=== PATIENT | male | born 1975 | race Caucasian/White ===

== ENCOUNTER 2016-11-13 08:02 | Emergency (ER) | payer BC ==
[~2016-11-13] VITALS: Ht 185.4 cm; Wt 104.3 kg
[2016-11-13 08:02] VITALS: BP 159/88; PULSE 74; RESP 16; TEMP 96.7; O2SAT 98
[~2016-11-13 08:02] MED LIST: AMLO5TAB92 PO; ECO325 PO; LISI-600 PO; SOTA80TA PO
--- NOTE | 2016-11-13 08:02 | NUR ---
Patient ambulated with ease to bed 3 to gown for evaluation.
--- NOTE | 2016-11-13 08:05 | NUR ---
ER Dr. Kenney at bedside examining patient.
--- NOTE | 2016-11-13 08:06 | NUR ---
Pt presents to Ed c/o L chest wall. Pt denies SOB, no acute distress noted. Pt h/o Afib ,HTN, GERD. EKG done .# 20 gauge angiocath placed to LAC. Use of asceptic technique. Opsite placed over site. Blood return noted. Blood for lab drawn from site. Flushed with 10 cc of normal saline. No evidence of infiltration noted. Patient tolerated well.
[2016-11-13] MEDS ORDERED: MAG HYDROX/AL HYDROX/SIMETH 30 ML, BELLADONNA ALKALOIDS/PHENOBARB 10 ML, LIDOCAINE VISC... PO ONE ×3 (08:15)
[2016-11-13] MEDS ORDERED: KETOROLAC TROMETHAMINE 60 MG/2 ML VIAL IM ONE (08:15)
[2016-11-13 08:33] LABS: BASOPHILS % (AUTO) 0.7 % (0.0-2.0); EOSINOPHILS # (AUTO) 0.1 K/uL (0.0-0.4); EOSINOPHILS % (AUTO) 1.1 % (0.0-4.0); HEMATOCRIT 46.5 % (36-54); HEMOGLOBIN 15.7 g/dL (14.0-18.0); LYMPHOCYTES # (AUTO) 1.5 K/uL (1.0-5.5); LYMPHOCYTES % (AUTO) 27.7 % (20.5-51.5); MEAN CORPUSCULAR HEMOGLOBIN 30 pg (27-31); MEAN CORPUSCULAR HGB CONC 34 % (32-36); MEAN CORPUSCULAR VOLUME 89 fL (79.0-98.0); MONOCYTES # (AUTO) 0.5 K/uL (0.0-1.0); MONOCYTES % (AUTO) 8.9 % (1.7-9.3); NEUTROPHILS # (AUTO) 3.2 K/uL (1.8-7.7); NEUTROPHILS % (AUTO) 61.6 % (40.0-70.0); PLATELET COUNT (AUTO) 210 K/uL (130-430); RED BLOOD CELL COUNT(AUTO) 5.21 MIL/uL (4.2-6.2); RED CELL DISTRIBUTION WIDTH 12.7 % (9.0-15.0); WHITE BLOOD COUNT (AUTO) 5.3 K/uL (4.8-10.8)
--- NOTE | 2016-11-13 08:40 | NUR ---
Pt tolerated medication well. Will continue to monitor.
[2016-11-13 08:52] LABS: CALCIUM 9.3 mg/dL (8.4-11.0); CREATININE 1.15 mg/dL (0.55-1.30); POTASSIUM 4.3 mmol/L (3.5-5.1)
[2016-11-13 08:57] LABS: ALBUMIN 4.4 g/dL (3.4-4.8); TOTAL BILIRUBIN 1.5 mg/dL (0.0-1.0)
[2016-11-13 09:35] VITALS: BP 155/88; PULSE 76; RESP 16; TEMP 96.7; O2SAT 98
--- NOTE | 2016-11-13 09:35 | NUR ---
Patient given written and verbal discharge instructions and verbalizes understanding. ER MD discussed with patient the results and treatment provided. Patient in stable condition. ID arm band removed. IV catheter removed intact and dressing applied, no active bleeding. Patient educated on pain management and to follow up with PMD. Pain Scale 0 Opportunity for questions provided and answered.
== END 2016-11-13 09:35 | disposition home or self-care (01) ==
LOC: SED 08:02
DX: R07.89 Other chest pain (principal); I10 Essential (primary) hypertension; Z85.828 Personal history of other malignant neoplasm of skin
CPT/HCPCS: 36415; 71010; 80053; 83880; 84484; 85025; 93005; 96372; 99285; J1885; J2001

== ENCOUNTER 2020-05-12 02:40 | Inpatient (IN) | payer BC, SELFPAY ==
[2020-05-12] VITALS (7 sets, daily range): BP systolic 141–175
[~2020-05-12] VITALS: Ht 185.4 cm; Wt 99.3 kg
--- NOTE | 2020-05-12 02:50 | NUR ---
Placed in room 1 . Placed on quality assurance monitor final, blood pressure machine and pulse oximeter. To gown for exam. Side rails up. Report given to Raheem ALBARADO.
--- NOTE | 2020-05-12 02:55 | NUR ---
ER at bedside examining patient.
[2020-05-12] MEDS ORDERED: MORPHINE 4 MG/ML INJ. SYRINGE IVP ONE (03:08)
[2020-05-12] MEDS ORDERED: KETOROLAC TROMETHAMINE 30 MG VIAL IVP ONE ×2 (03:08→14:10)
[2020-05-12] MEDS ORDERED: NACL 0.9% 1,000 ML IV ONE (03:08)
--- NOTE | 2020-05-12 03:11 | NUR ---
# 18 gauge angiocath placed to rt ac. Use of asceptic technique. Opsite placed over site. Blood return noted. Blood for lab drawn from site. Flushed with 10 cc of normal saline. No evidence of infiltration noted. Patient tolerated well.
[2020-05-12] MEDS ORDERED: KETOROLAC TROMETHAMINE 30 MG VIAL ONE (03:13)
--- NOTE | 2020-05-12 03:20 | NUR ---
Medicated pt as ordered by Dr Campuzano.Pt tolerated well.
--- NOTE | 2020-05-12 03:25 | NUR ---
Received patient to ER w/ c/o mid abdominal pain ongoing since 1700 05/11/2020 associated w/ n/v. Introduced self to patient, positioned for comfort and safety w/ bed to low positon sr up. patient had been medicated as ordered. Will observe for any adverse reaction. Continue to monitor.
[2020-05-12 03:31] LABS: BASOPHILS # (AUTO) 0.1 K/uL (0.0-0.2); BASOPHILS % (AUTO) 0.5 % (0.0-2.0); HEMATOCRIT 47.2 % (36-54); HEMOGLOBIN 16.1 g/dL (14.0-18.0); LYMPHOCYTES # (AUTO) 1.7 K/uL (1.0-5.5); LYMPHOCYTES % (AUTO) 12.3 % (20.5-51.5); MEAN CORPUSCULAR HEMOGLOBIN 31 pg (27-31); MEAN CORPUSCULAR HGB CONC 34 % (32-36); MEAN CORPUSCULAR VOLUME 91 fL (79.0-98.0); MONOCYTES # (AUTO) 0.5 K/uL (0.0-1.0); MONOCYTES % (AUTO) 4.1 % (1.7-9.3); NEUTROPHILS # (AUTO) 11.1 K/uL (1.8-7.7); NEUTROPHILS % (AUTO) 83.1 % (40.0-70.0); PLATELET COUNT (AUTO) 248 K/uL (130-430); RED BLOOD CELL COUNT(AUTO) 5.18 MIL/uL (4.2-6.2); RED CELL DISTRIBUTION WIDTH 12.9 % (9.0-15.0); WHITE BLOOD COUNT (AUTO) 13.4 K/uL (4.8-10.8)
--- NOTE | 2020-05-12 03:31 | NUR ---
Patient to ct scan via [facility] w/ electrotype caster.
[2020-05-12 03:43] LABS: CALCIUM 9.7 mg/dL (8.4-11.0); CREATININE 1.27 mg/dL (0.55-1.30); POTASSIUM 4.1 mmol/L (3.5-5.1)
--- NOTE | 2020-05-12 03:45 | NUR ---
patient returned from ct scan, returned to [facility], positioned for comfort and safety w/ bed to low position sr up, continue to monitor.
[2020-05-12 03:58] LABS: ALBUMIN 4.5 g/dL (3.4-4.8); TOTAL BILIRUBIN 1.7 mg/dL (0.0-1.0)
--- NOTE | 2020-05-12 04:49 | NUR ---
patient resting comfortably at this time in no acute distress, pain relieved after being medicated as ordered. Bed to low position sr up, continue to monitor.
[2020-05-12] MEDS ORDERED: MORPHINE 2 MG/ML INJ. SYRINGE IVP PRN (06:15)
--- NOTE | 2020-05-12 07:01 | NUR ---
patient resting comfortably at this time in no acute distress, bed to low position sr up. continue to monitor.
--- NOTE | 2020-05-12 07:10 | NUR ---
rpashart received from Derek kay. Romel waiting for a tele bed.
[2020-05-12] MEDS: MORPHINE 4 MG/ML INJ. SYRINGE IVP PRN ×4 (07:55→20:11)
[2020-05-12] MEDS: ONDANSETRON HCL 4 MG/2 ML VIAL IVP PRN ×2 (07:57→12:12)
--- NOTE | 2020-05-12 08:04 | NUR ---
ua collected to and sent to the lab
[2020-05-12 08:06] LABS: BILIRUBIN,URINE NEGATIVE (NEGATIVE); BLOOD, URINE NEGATIVE (NEGATIVE); CLARITY/URINE CLEAR (CLEAR); COLOR,URINE YELLOW (YELLOW); GLUCOSE,URINE NEGATIVE (NEGATIVE); KETONES,URINE 2+ (NEGATIVE); LEUKOCYTE ESTERASE ,URINE NEGATIVE (NEGATIVE); NITRITE, URINE NEGATIVE (NEGATIVE); PROTEIN URINE NEGATIVE (NEGATIVE); UROBILINOGEN,URINE 0.2 (0.2-1.0)
[2020-05-12] MEDS ORDERED: ASA81 PO (08:10)
--- NOTE | 2020-05-12 08:10 | NUR ---
Medication reconciliation completed with information provided by pt. Any prior medication reconciliation on file was reviewed and corrected.
[2020-05-12] MEDS: D5/0.45 NS 1,000 ML IV SCH (09:24)
[2020-05-12] MEDS ORDERED: lisinopriL 20 MG TABLET PO ONE (10:00)
[2020-05-12] MEDS ORDERED: SOTALOL (AF) 80 MG TABLET PO ONE (10:00)
[2020-05-12] MEDS ORDERED: GASTROGRAFIN 120 ML ONE (10:08)
--- NOTE | 2020-05-12 10:30 | NUR ---
Patient transported to radiology via , accompanied by sterile processing tech.
--- NOTE | 2020-05-12 11:38 | NUR ---
Patient will be admitted to care of Dr. Fajardo. Admitted to Med Surg unit. Will go to room 109-a. Belongings list completed. Complete and up to date summary report printed. SBAR report to be given at bedside with opportunity for questions. IV is on the RAC 18g.
--- NOTE | 2020-05-12 11:41 | NUR ---
pt is currently in x-ray. pt will be transferred to Med Surg.
[2020-05-12] MEDS: PIPERACILLIN/TAZO 3.375/DEX-IS 50 ML IV SCH ×2 (12:00→17:42)
--- NOTE | 2020-05-12 12:30 | NUR ---
ADMIT NOTE late entry due to patient care 11:53 Received pt from ER to the floor with a diagnosis of Small Bowel obstruction. Admission process initiated. patient oriented to pain management, safety and call light-teach back done.
[2020-05-12] MEDS ORDERED: FLU VACC QS2020-21 (6 mos & up) 0.5 ML/SYRINGE I.M. PRN (12:45)
--- NOTE | 2020-05-12 13:17 | NUR ---
CONSULTATION PAGED/CALLED Reason for Consultation: [] SMALL BOWEL OBSTRUCTION Person Who was Notified: [] MD DENIS (DR CHOWDARY) Consulting Physician: [] DR CHOWDARY, A Fur Finisher Tailor Specialty: [] GEN SURGEON Ordering Physician: [] DR WHITE
[2020-05-12] MEDS ORDERED: PHENYLEPHRINE HCL 10 MG/ML VIAL (NEOSYNEPHRINE) IV ONE (14:10)
[2020-05-12] MEDS ORDERED: fentaNYL CITRATE/PF 100 MCG/2 ML AMP IVP ONE (14:10)
[2020-05-12] MEDS ORDERED: LR 1,000 ML IV.SOLN IV ONE (14:10)
[2020-05-12] MEDS ORDERED: ROCURONIUM BROMIDE 10 MG/ML (ZEMURON) IV ONE (14:10)
[2020-05-12] MEDS ORDERED: CEFAZOLIN 2 GM IVPB PREMIX 50 ML IV ONE (14:10)
[2020-05-12] MEDS ORDERED: GLYCOPYRROLATE 0.2 MG/ML VIAL IJ ONE (14:10)
[2020-05-12] MEDS ORDERED: ONDANSETRON HCL 4 MG/2 ML VIAL IVP ONE (14:10)
[2020-05-12] MEDS ORDERED: BUPIVACAINE /PF 0.25% 30 ML VIAL INJ ONE (14:10)
[2020-05-12] MEDS ORDERED: PROPOFOL 200MG/ 20ML VIAL (DIPRIVAN) IV ONE (14:10)
[2020-05-12] MEDS ORDERED: LIDOCAINE/EPI 1% 1:100000 20 ML VIAL INJ ONE (14:10)
[2020-05-12] MEDS ORDERED: SEVOFLURANE 15 MIN GAS INH ONE (14:10)
[2020-05-12] MEDS ORDERED: MIDAZOLAM HCL 5 MG/5 ML VIAL IVP ONE (14:10)
[2020-05-12] MEDS ORDERED: ENALAPRILAT DIHYDRATE 1.25 MG/ML VIAL IVP PRN (14:45)
[2020-05-12] MEDS ORDERED: cloNIDine HCL 0.1 MG TABLET PO PRN (14:45)
[2020-05-12] MEDS ORDERED: hydrALAZINE HCL 20 MG/ML VIAL IVP PRN (14:45)
--- NOTE | 2020-05-12 17:35 | NUR ---
ROUNDS LATE ENTRY DUE TO PATIENT CARE 1330- DR CHOWDARY HERE TO SEE PATIENT, SB FOLLOW TROUGH BEING PERFORM AT BEDSIDE. DR WHITE HERE TO SEE PATIENT WITH ORDERS 1430- C/O NAUSEA AND VOMITING, BLOOD PRESSURE ELEVATED, MD NOTIFIED WITH ORDERS
--- NOTE | 2020-05-12 17:57 | NUR ---
BP BP STILL ELEVATED. HYDRALAZINE 10 MG ADMINISTERED. CONTINUE TO MONITOR
--- NOTE | 2020-05-12 19:15 | NUR ---
OPENING NOTE BEDSIDE REPORT RECEIVED FROM DAYSHIFT NURSE. PATIENT RECEIVED LYING IN BED, AWAKE, AOX4, NO S/S OF ACUTE DISTRESS NOTED. BREATHING IS EVEN AND UNLABORED. IVF INFUSING WELL, IV SITE IS PATENT, NO SIGNS OF INFILTRATION OR INFECTION NOTED. CALL LIGHT WITH PATIENT. BED IS LOCKED AND AT LOWEST POSITION. WILL CONTINUE TO MONITOR.
[2020-05-12] MEDS: lisinopriL 20 MG TABLET PO SCH (20:13)
[2020-05-12] MEDS: SOTALOL (AF) 80 MG TABLET PO SCH (20:14)
--- NOTE | 2020-05-12 21:00 | NUR ---
ROUNDS PATIENT IN BED, ASLEEP AT THIS TIME. NO SIGNS OF DISCOMFORT. CHEST RISE AND FALL EVEN BILATERALLY. CALL LIGHT WITH PATIENT. WILL CONTINUE TO MONITOR.
--- NOTE | 2020-05-12 23:00 | NUR ---
ROUNDS PATIENT IN BED, EYES CLOSED, APPEARS TO BE ASLEEP. NO S/S OF ACUTE DISTRESS. BREATHING EVEN AND UNLABORED. CALL LIGHT WITH PATIENT. WILL CONTINUE TO MONITOR.
[2020-05-13] VITALS (9 sets, daily range): BP systolic 105–154
[2020-05-13] MEDS: PIPERACILLIN/TAZO 3.375/DEX-IS 50 ML IV SCH ×5 (00:15→23:24)
[2020-05-13] MEDS: MORPHINE 4 MG/ML INJ. SYRINGE IVP PRN ×4 (00:15→20:50)
--- NOTE | 2020-05-13 00:15 | NUR ---
PAIN PATIENT COMPLAINED OF PAIN, PRN MEDICATION ADMINISTERED. CALL LIGHT WITH PATIENT. WILL CONTINUE TO MONITOR AND REASSESS.
[2020-05-13] MEDS: D5/0.45 NS 1,000 ML IV SCH ×4 (00:16→23:24)
--- NOTE | 2020-05-13 02:00 | NUR ---
ROUNDS PATIENT SLEEPING AT THIS TIME. NO S/S OF ACUTE DISTRESS. BREATHING EVEN AND UNLABORED. CALL LIGHT WITH PATIENT. WILL CONTINUE TO MONITOR.
[2020-05-13] MEDS: ONDANSETRON HCL 4 MG/2 ML VIAL IVP PRN (04:30)
--- NOTE | 2020-05-13 06:41 | NUR ---
CLOSING NOTE PATIENT IN BED, ASLEEP AT THIS TIME. NO S/S OF ACUTE DISTRESS NOTED. BREATHING IS EVEN AND UNLABORED. HOB RAISED. IVF INFUSING WELL, IV SITE IS PATENT, NO SIGNS OF INFILTRATION OR INFECTION NOTED. ALL NEEDS MET. FALL AND SAFETY PRECAUTIONS MAINTAINED THROUGHOUT SHIFT. WILL CONTINUE TO MONITOR UNTIL PATIENT CARE IS ENDORSED TO ONCOMING DAYSHIFT NURSE.
[2020-05-13] MEDS: lisinopriL 20 MG TABLET PO SCH ×2 (08:33→20:53)
[2020-05-13] MEDS: SOTALOL (AF) 80 MG TABLET PO SCH ×2 (08:42→20:53)
[2020-05-13] MEDS ORDERED: ASPIRIN 81 MG TAB.CHEW PO SCH (09:00)
[2020-05-13 10:20] LABS: BASOPHILS % (AUTO) 0.1 % (0.0-2.0); HEMATOCRIT 50.7 % (36-54); HEMOGLOBIN 16.6 g/dL (14.0-18.0); LYMPHOCYTES # (AUTO) 0.8 K/uL (1.0-5.5); MEAN CORPUSCULAR HEMOGLOBIN 31 pg (27-31); MEAN CORPUSCULAR HGB CONC 33 % (32-36); MEAN CORPUSCULAR VOLUME 94 fL (79.0-98.0); MONOCYTES # (AUTO) 1.1 K/uL (0.0-1.0); MONOCYTES % (AUTO) 11.4 % (1.7-9.3); NEUTROPHILS # (AUTO) 7.4 K/uL (1.8-7.7); NEUTROPHILS % (AUTO) 79.5 % (40.0-70.0); PLATELET COUNT (AUTO) 215 K/uL (130-430); RED BLOOD CELL COUNT(AUTO) 5.42 MIL/uL (4.2-6.2); RED CELL DISTRIBUTION WIDTH 13.2 % (9.0-15.0); WHITE BLOOD COUNT (AUTO) 9.3 K/uL (4.8-10.8)
--- NOTE | 2020-05-13 11:16 | NUR ---
CONSULTATION PAGED/CALLED Reason for Consultation: [] CARDIAC CLEARANCE Person Who was Notified: [] DR ORDOÑEZ Consulting Physician: [] DR ORDOÑEZ Manager Market Research Specialty: [] SENIOR NETWORK ARCHITECT Ordering Physician: [] DR WHITE
[2020-05-13] MEDS ORDERED: fentaNYL CITRATE/PF 100 MCG/2 ML AMP IVP PRN ×2 (13:00)
[2020-05-13] MEDS ORDERED: ONDANSETRON HCL 4 MG/2 ML VIAL IVP PRN (13:00)
--- NOTE | 2020-05-13 13:01 | NUR ---
alert, oriented, c/o pain, epigastric pain, and requested mso4, 4mg ivp, given. Remains NPO ivf running continuously, just now, seen by Kade Leavitt, " will schedule for surgery 3-4hrs from now" Awaiting order for the consent to sign. vomitted about 350cc, bile-colored vomittus. NGT ready to insert, vomitted again about 500cc more, patient refused to let nurse insert it.
--- NOTE | 2020-05-13 16:50 | NUR ---
GEN SURGEON DR Jamie WILLARD WAS CALLED RE: DIET ORDER OR SOME ICE CHIP ORDER.
--- NOTE | 2020-05-13 17:15 | NUR ---
1625 back from PACU, alert, oriented, wide awake. Denied pain, nor discomfort at this time. NGT to Low intermittent suction. Remains NPO except some ice chips, ivf changed to LR at 100cc/hr, per surgeon.
--- NOTE | 2020-05-13 19:00 | NUR ---
OPENING NOTE RECEIVED PATIENT IN BED, AWAKE, AOX4, NO S/S OF ACUTE DISTRESS NOTED. BREATHING EVEN AND UNLABORED. HOB RAISED. NGT ATTACHED, SECURED, AND ON LOW INTERMITTENT SUCTION. IVF INFUSING WELL, IV SITE PATENT, NO SIGNS OF INFILTRATION OR INFECTION NOTED. INCISION SITES SHOW NO ACTIVE BLEEDING OR DRAINAGE. CALL LIGHT WITH PATIENT. BED IS LOCKED AND AT LOWEST POSITION. WILL CONTINUE TO MONITOR.
--- NOTE | 2020-05-13 20:50 | NUR ---
PAIN PATIENT COMPLAINING OF PAIN, PRN MEDICATION ADMINISTERED. WILL CONTINUE TO MONITOR AND REASSESS.
--- NOTE | 2020-05-13 23:00 | NUR ---
EDUCATION: IS PATIENT EDUCATED ON PROPER USE OF IS, DEMONSTRATED BACK PROPER USE, WAS ABLE TO GET 2000. CALL LIGHT WITH PATIENT. WILL CONTINUE TO MONITOR.
[2020-05-14] VITALS: BP_SYST 128
--- NOTE | 2020-05-14 01:00 | NUR ---
ROUNDS PATIENT IN BED, ASLEEP, NO S/S OF ACUTE DISTRESS NOTED. BREATHING EVEN AND UNLABORED. IVF INFUSING WELL. CALL LIGHT WITH PATIENT. WILL CONTINUE TO MONITOR.
[2020-05-14] MEDS: MORPHINE 4 MG/ML INJ. SYRINGE IVP PRN (04:27)
[2020-05-14] MEDS: PIPERACILLIN/TAZO 3.375/DEX-IS 50 ML IV SCH ×3 (05:34→17:08)
--- NOTE | 2020-05-14 06:52 | NUR ---
CLOSING NOTE PATIENT IN BED, SLEEPING, NO S/S OF ACUTE DISTRESS NOTED. BREATHING EVEN AND UNLABORED. HOB RAISED, NGT ATTACHED AND SECURED, ON LIS. IVF INFUSING WELL, IV SITE PATENT, NO SIGNS OF INFILTRATION OR INFECTION NOTED. ALL NEEDS MET THROUGHOUT SHIFT. FALL AND SAFETY PRECAUTIONS MAINTAINED. WILL CONTINUE TO MONITOR UNTIL PATIENT CARE IS ENDORSED TO ONCOMING DAYSHIFT NURSE.
[2020-05-14] MEDS: D5/0.45 NS 1,000 ML IV SCH ×2 (07:48→17:09)
[2020-05-14 08:00] VITALS: BP_SYST 130
[2020-05-14] MEDS: lisinopriL 20 MG TABLET PO SCH ×2 (10:22→21:00)
[2020-05-14] MEDS: SOTALOL (AF) 80 MG TABLET PO SCH ×2 (10:23→21:00)
[2020-05-14 12:00] VITALS: BP_SYST 128
[2020-05-14 12:15] VITALS: BP_SYST 119
[2020-05-14 15:27] VITALS: BP_SYST 126
--- NOTE | 2020-05-14 17:30 | NUR ---
ALERT, ORIENTED, ANXIOUSLY AWAITING NGT OUT 929 NGT DISCONTINUED WALKED FREELY, IN THE HALLWAY, ROAMING AROUND ROOM, AND COMPLIANT WITH IS, ON HIS OWN 1630 SPKING TEMP 99, " BURPED A LOT, BUT PASSING GAS , NO VOICED HIS CONCERN, AND WOULD LIKE THE SURGEON TO CALL HIM. RELAYED THE MESSAGE TO GEORGETTE TREJO, WHO DECLINED TO TAKE PATIENT'S CELL FOR CALL BACK.
--- NOTE | 2020-05-14 17:54 | NUR ---
1754 " JUST PASSED GAS, BUT FELT NAUSEOUS, OFFERED ZOFRAN, PATIENT DECLINED.
--- NOTE | 2020-05-14 19:15 | NUR ---
OPENING NOTE REPORT RECEIVED FROM DAYSHIFT NURSE. PATIENT RECEIVED LYING IN BED, AOX4, DENIES PAIN. BREATHING EVEN AND UNLABORED. HOB RAISED. IVF INFUSING WELL. IV SITE IS PATENT, NO SIGNS OF INFILTRATION OR INFECTION NOTED. CALL LIGHT WITH PATIENT. BED IS LOCKED AND AT LOWEST POSITION. WILL CONTINUE TO MONITOR.
[2020-05-14 20:00] VITALS: BP_SYST 124
--- NOTE | 2020-05-14 21:00 | NUR ---
DR WILLARD CALLED DR WILLARD CALLED WANTING TO TALK TO THE PATIENT. MD SPOKE WITH PATIENT, ALL CONCERNS AND QUESTIONS ANSWERED, STATED THAT HE WILL COME IN THE MORNING.
--- NOTE | 2020-05-14 23:00 | NUR ---
ROUNDS PATIENT IN BED, ASLEEP. NO S/S OF ACUTE DISTRESS NOTED. BREATHING EVEN AND UNLABORED. CALL LIGHT WITH PATIENT. WILL CONTINUE TO MONITOR.
[2020-05-15] VITALS: BP_SYST 132
[2020-05-15] MEDS: PIPERACILLIN/TAZO 3.375/DEX-IS 50 ML IV SCH ×4 (00:05→17:27)
--- NOTE | 2020-05-15 01:00 | NUR ---
ROUNDS PATIENT IN BED, SLEEPING. NO CHANGE FROM PREVIOUS CONDITION. ALL NEEDS MET. CALL LIGHT WITH PATIENT. WILL CONTINUE TO MONITOR.
--- NOTE | 2020-05-15 03:00 | NUR ---
ROUNDS PATIENT SLEEPING COMFORTABLY. NO S/S OF ACUTE DISTRESS NOTED. BREATHING EVEN AND UNLABORED. IVF INFUSING WELL. ALL NEEDS MET. WILL CONTINUE TO MONITOR.
--- NOTE | 2020-05-15 05:00 | NUR ---
ROUNDS PATIENT SLEEPING COMFORTABLY. NO SIGNS OF DISCOMFORT NOTED. CHEST RISE AND FALL EVEN BILATERALLY. CALL LIGHT WITH PATIENT. WILL CONTINUE TO MONITOR.
[2020-05-15] MEDS: D5/0.45 NS 1,000 ML IV SCH (05:32)
--- NOTE | 2020-05-15 06:24 | NUR ---
CLOSING NOTE PATIENT IN BED, ASLEEP. NO S/S OF ACUTE DISTRESS. BREATHING EVEN AND UNLABORED. HOB RAISED. IVF INFUSING WELL, IV SITE IS PATENT, NO SIGNS OF INFILTRATION OR INFECTION NOTED. ALL NEEDS MET THROUGHOUT SHIFT. FALL, SAFETY PRECAUTIONS MAINTAINED. WILL MONITOR UNTIL ENDORSED TO DAYSHIFT.
--- NOTE | 2020-05-15 07:34 | NUR ---
Nutrition Update Aleksander Scale 18 noted. Pt admitted for Small bowel obstruction Diet: NPO BMI: 28.9 kg/m2 RD to follow per nutrition care standards.
[2020-05-15 08:00] VITALS: BP_SYST 133
[2020-05-15 08:18] LABS: BASOPHILS % (AUTO) 0.3 % (0.0-2.0); EOSINOPHILS # (AUTO) 0.1 K/uL (0.0-0.4); EOSINOPHILS % (AUTO) 1.6 % (0.0-4.0); HEMATOCRIT 40.2 % (36-54); HEMOGLOBIN 13.1 g/dL (14.0-18.0); LYMPHOCYTES # (AUTO) 1.4 K/uL (1.0-5.5); LYMPHOCYTES % (AUTO) 24.1 % (20.5-51.5); MEAN CORPUSCULAR HEMOGLOBIN 31 pg (27-31); MEAN CORPUSCULAR HGB CONC 33 % (32-36); MEAN CORPUSCULAR VOLUME 94 fL (79.0-98.0); MONOCYTES # (AUTO) 0.7 K/uL (0.0-1.0); MONOCYTES % (AUTO) 11.9 % (1.7-9.3); NEUTROPHILS # (AUTO) 3.7 K/uL (1.8-7.7); NEUTROPHILS % (AUTO) 62.1 % (40.0-70.0); PLATELET COUNT (AUTO) 171 K/uL (130-430); RED BLOOD CELL COUNT(AUTO) 4.26 MIL/uL (4.2-6.2); WHITE BLOOD COUNT (AUTO) 5.9 K/uL (4.8-10.8)
[2020-05-15 08:50] LABS: CALCIUM 8.3 mg/dL (8.4-11.0); CREATININE 0.94 mg/dL (0.55-1.30); POTASSIUM 3.6 mmol/L (3.5-5.1)
[2020-05-15] MEDS: lisinopriL 20 MG TABLET PO SCH ×3 (10:22→20:55)
[2020-05-15] MEDS: SOTALOL (AF) 80 MG TABLET PO SCH ×2 (10:29→20:51)
[2020-05-15 11:32] VITALS: BP_SYST 133
[2020-05-15 11:33] VITALS: BP_SYST 130
--- NOTE | 2020-05-15 15:10 | NUR ---
patient A&Ox4 denies pain at the moment, currently on NPO diet for breakfast. visited patient placed him on soft low fiber/bland diet for lunch which patient tolerated well no c/o nausea or vomiting had bm on 05/15/20. Plan is possible dc tomorrow if no gastric upset occurs, IV fluids are to be DC if patient is keeping down food and encouraged patient to use incentive spirometer. Vitals are stable patient takes medications whole with out any issue.
[2020-05-15 15:35] VITALS: BP_SYST 126
[2020-05-15 20:51] VITALS: BP_SYST 127
[2020-05-16 00:01] VITALS: BP_SYST 125
[2020-05-16] MEDS: PIPERACILLIN/TAZO 3.375/DEX-IS 50 ML IV SCH ×2 (00:07→05:58)
--- NOTE | 2020-05-16 00:07 | NUR ---
ATB PATIENT DUE ANTIBIOTIC INFUSED ORDERED. VITAL SIGNS STABLE. NO C/O PAIN.
--- NOTE | 2020-05-16 00:59 | NUR ---
MED PASS PATIENT DUE MEDICATIONS GIVEN. VITAL SIGNS STABLE. DENIES ANY PAIN. ABDOMINAL INCISIONS X4 DRY OPEN TO AIR. Addendum: 05/16/20 at 0315 by Tiffany Stratton RN DONE AT 05/15/2020 @ 2050
--- NOTE | 2020-05-16 03:15 | NUR ---
ROUNDS PATIENT RESTING IN BED. NO DISTRESS NOTED. CALL LIGHT WITH IN REACH.
--- NOTE | 2020-05-16 05:58 | NUR ---
ATB PATIENT DUE ANTIBIOTIC INFUSED. IV LINE INTACT AND PATENT. NO C/O PAIN.
--- NOTE | 2020-05-16 07:10 | NUR ---
Opening Note received bedside SBAR report from appliance line assembler RN, patient resting in bed, respirations even and unlabored on room air, no acute distress noted, educated patient on use of call light and asked to call for assistance, patient verbalized understanding, call light in reach, educated patient on use of bed alarm for patient safety, patient verbalized understanding, patient refusing bed alarm, bed in low and locked position.
[2020-05-16 08:00] VITALS: BP_SYST 122
--- NOTE | 2020-05-16 08:00 | NUR ---
Physician Rounds Dr. Fajardo at bedside examining patient.
[2020-05-16 08:55] VITALS: BP_SYST 122
[2020-05-16] MEDS: lisinopriL 20 MG TABLET PO SCH (09:07)
[2020-05-16] MEDS: SOTALOL (AF) 80 MG TABLET PO SCH (09:08)
[2020-05-16] MEDS ORDERED: HYDR-4272 PO (09:12)
--- NOTE | 2020-05-16 09:33 | NUR ---
Discharge patient provided with discharge packets and instructions, patient verbalized understanding, Dr. Fajardo speaking with patient at nurses station and instructed patient to follow up with Dr. Rey (surgeon) for clearance before returning to work, patient verbalized understanding, IV catheter removed, catheter intact, no bleeding, steady gait noted, patient denies any pain, no acute distress noted, all belongings sent with patient, patient refusing wheelchair to parking lot, patient ambulated to parking lot accompanied by discharge specialist, patient accompanied by his for discharge home.
== END 2020-05-16 09:35 | disposition home or self-care (01) | DRG 337 ==
LOC: SED 02:40 → SMU 06:12
PROVIDERS: ADMIT Internal Medicine Hospice and Palliative Medicine; ATTEND Internal Medicine Hospice and Palliative Medicine
PROC: 0DN84ZZ Release Small Intestine, Percutaneous Endoscopic Approach (ICD-10-PCS; principal; 2020-05-13 14:10)
DX: K56.50 Intestinal adhesions [bands], unspecified as to partial versus complete obstruction (principal); D72.829 Elevated white blood cell count, unspecified; I10 Essential (primary) hypertension; N20.0 Calculus of kidney; K40.90 Unilateral inguinal hernia, without obstruction or gangrene, not specified as recurrent; I48.0 Paroxysmal atrial fibrillation; Z79.82 Long term (current) use of aspirin; Z85.828 Personal history of other malignant neoplasm of skin; Z87.891 Personal history of nicotine dependence; Z79.899 Other long term (current) drug therapy; Z20.828 Contact with and (suspected) exposure to other viral communicable diseases
CPT/HCPCS: 36415; 71045; 74018; 74250-TC; 76376; 80048; 80053; 81003; 83605; 85025; 93005; 93306; 94010; 96361; 96374; 99285; C1727; J0360; J0690; J1885; J2250; J2270; J2370; J2405; J2543; J2704; J3010; J3490; J7120; Q9963